=== PATIENT | male | born 1985 | race Hispanic/Latino ===

== ENCOUNTER 2020-06-03 11:04 | Emergency (ER) | payer SELFPAY ==
--- OUTSIDE RECORDS SUMMARY | 2020-06-03 11:06 | XMS REPORT | Continuity of Care Document ---
:1985 Author Organization [facility] t Address [address] [place] [address] Care Team Providers Name Role Phone Brunilda TATE, T Attending Clinician Unavailable Radha ORTA, G Attending Clinician Juan Carlos MEEK Attending Clinician Doctor Unassigned, Name Attending Clinician Unavailable Problems This patient has no known problems. Allergies, Adverse Reactions, Alerts This patient has no known allergies or adverse reactions. Medications This patient has no known medications. Procedures This patient has no known procedures. Encounters Start End Encounter Admission Attending Care Care Encounter Source Date/Time Date/Time Type Type Clinicians Facility Department ID 2020-06-03 2020-06-03 Letter ISHMAEL Worley [id number] 00:00:00 00:00:00 (Out) Rand[id number] [facility] [id number] 2020-06-02 2020-06-02 Emergency [facility] [id number] 16:38:00 19:54:00 Melba West [id number] [place] [id number] [place] [id number] 2020-06-01 2020-06-01 [facility] ([place], [place]) [id number] 17:12:16 23:59:00 Encounter Cedric West [id number] [place] [id number] [place] [id number] 2020-06-01 2020-06-01 Urgent Juan Carlos, [facility] [id number] 16:29:22 17:19:23 Care [facility] [id number] [place] [id number] [facility] [id number] nal [address] 2020-06-01 2020-06-01 Letter Doctor ISHMAEL [id number] 00:00:00 00:00:00 (Out) Unassigned, MARYLU [id number] [place] [facility] [id number] 2020-06-01 2020-06-01 Letter Doctor ISHMAEL [id number] 00:00:00 00:00:00 (Out) Unassigned, MARYLU [id number] [place] [facility] [id number] 2019-05-30 2019-05-30 Emergency [facility] [id number] 21:38:38 21:40:00 [place] [id number] [place] [id number] [place] [id number] Results This patient has no known results.
[2020-06-03 14:21] LABS: Absolute Lymphocytes (CBC) 0.7 K/uL (0.7-4.9); Basophils % 0.2 % (0-1.3); Hematocrit 47.1 % (39.6-49.0); Lymphocytes % 7.3 % (15.3-44.8); MPV 8.6 fL (7.6-11.3)
[2020-06-03 14:24] LABS: Protime INR 1.32
--- NOTE | 2020-06-03 14:26 | RAD REPORT ---
EXAM DESCRIPTION: RAD - Chest Single View - 06/03/2020 2:14 pm CLINICAL HISTORY: DYSPNEA Chest pain. COMPARISON: No comparisons FINDINGS: Portable technique limits examination quality. Moderate bilateral pulmonary opacities are present probably representing bilateral infection/bronchit is. The heart is normal in size. No displaced fractures.
[2020-06-03 15:03] LABS: SARS-COV-2 RT PCR NEGATIVE (NEGATIVE)
[2020-06-03 15:22] LABS: ALT/SGPT 79 U/L (12-78); AST/SGOT 69 U/L (15-37); Albumin 3.4 g/dL (3.4-5.0); Alkaline Phosphatase 70 U/L (45-117); BUN Blood Urea Nitrogen 15 mg/dL (7-18); Bicarbonate 25 mmol/L (21-32); Bilirubin Direct 0.2 mg/dL (0-0.2); Bilirubin Total 0.5 mg/dL (0.2-1.0); Glucose Level 90 mg/dL (74-106); Lipase 358 U/L (73-393); Potassium 3.7 mmol/L (3.5-5.1); Protein, Total 8.3 g/dL (6.4-8.2); Sodium Level 134 mmol/L (136-145); Troponin (Emerg Dept Use Only) < 0.02 ng/mL (0.0-0.045)
--- NOTE | 2020-06-03 15:49 | EDPHYS ---
Physician Documentation [facility] Name: Watson Mata Age: 35 yrs Sex: Male : 1985 Arrival Date: 06/03/2020 Time: 11:06 Bed 17 Private MD: ED Physician Timoteo Hawthorne HPI: 06/03 14:20 This 35 yrs old Male presents to ER via Ambulatory with complaints of kb Shortness Of Breath. 14:20 The patient or guardian reports cough, that is intermittent, described as mild, kb difficulty breathing, flu symptoms, low-grade fever, myalgias. Onset: The symptoms/episode began/occurred 9 day(s) ago. Severity of symptoms: At their worst the symptoms were moderate, in the emergency department the symptoms are unchanged. Modifying factors: The symptoms are alleviated by nothing, the symptoms are aggravated by nothing. Associated signs and symptoms: Pertinent positives: diarrhea, fever, nausea, vomiting. The patient has not experienced similar symptoms in the past. The patient has been recently seen by a physician: the patient's primary care provider, the ER physician, at a clinic, out of Town, with similar presenting complaints. Pt reports he started having cough, fever, chills, n/v/d, fatigue, malaise, and shortness of breath 9 days ago. and son are both positive for covid. Pt has been seen by PCP and another ER. Had x-ray done that showed covid pneumonia, but had negative covid test. Pt has been taking zithromax (on day 2) and tesselon perles. States oxygen has been staying between 93 and 95%. Pt states he knows there is nothing to be done, but his family insisted he come here because they think we will give him a different treatment.. Historical: - Allergies: 12:15 No Known Allergies; ca1 - PMHx: 12:15 None; ca1 - PSHx: 12:15 None; ca1 - Immunization history:: Flu vaccine is not up to date. - Social history:: Smoking status: Patient denies any tobacco usage or history of. ROS: 14:19 Cardiovascular: Negative for chest pain, palpitations, and edema, Back: Negative for kb injury and pain, MS/Extremity: Negative for injury and deformity, Skin: Negative for injury, rash, and discoloration. 14:19 Constitutional: Positive for body aches, chills, fatigue, fever, malaise. 14:19 Respiratory: Positive for cough, shortness of breath. 14:19 Abdomen/GI: Positive for nausea, vomiting, and diarrhea. 14:19 Neuro: Positive for headache. Exam: 14:19 Constitutional: This is a well developed, well nourished patient who is awake, alert, kb and in no acute distress. Head/Face: Normocephalic, atraumatic. Cardiovascular: Regular rate and rhythm with a normal S1 and S2. No gallops, murmurs, or rubs. No pulse deficits. Respiratory: Respirations even and unlabored. No increased work of breathing, no retractions or nasal flaring. Abdomen/GI: Soft, non-tender. No distention Skin: Warm, dry with normal turgor. Normal color. MS/ Extremity: Pulses equal, no cyanosis. Neurovascular intact. Full, normal range of motion. Neuro: Awake and alert, GCS 15, oriented to person, place, time, and situation. Moves all extremities. Normal gait. Vital Signs: 11:10 Pulse 97; Resp 22 S; Pulse Ox 96% on R/A; ca1 12:15 BP 112 / 98; Pulse 93; Resp 16 S; Temp 97.9(TE); Pulse Ox 97% on R/A; Weight 108.86 kg ca1 (R); Height 5 ft. 11 in. (180.34 cm) (R); Pain 3/10; 14:19 BP 130 / 84; Pulse 90; Resp 22 S; Pulse Ox 96% on R/A; iw 12:15 Body Mass Index 33.47 (108.86 kg, 180.34 cm) ca1 MDM: 13:06 Patient medically screened. kb 14:19 Data reviewed: vital signs, nurses notes. Data interpreted: Pulse oximetry: on room air kb is 97 %. Interpretation: normal. 15:46 Counseling: I had a detailed discussion with the patient and/or guardian regarding: the kb historical points, exam findings, and any diagnostic results supporting the discharge/admit diagnosis, lab results, radiology results, the need for outpatient follow up, a family practitioner, to return to the emergency department if symptoms worsen or persist or if there are any questions or concerns that arise at home. ED course: Pt educated to return for worsening symptoms, difficulty breathing, low oxygen saturation. Verbal understanding received. Pt educated that there is no cure for this virus. Pt is already on Zithromax. No indication for steroids at this time, no hypoxia, no resp distress. Discussed ivermectin with pt and he would like to try it. . 06/03 13:27 Order name: Blood Culture Adult (2) kb 06/03 13:27 Order name: BMP kb 06/03 13:27 Order name: C-Reactive Protein kb 06/03 13:27 Order name: CBC with Diff kb 06/03 13:27 Order name: Ferritin kb 06/03 13:27 Order name: Lactate kb 06/03 13:27 Order name: LFT's kb 06/03 13:27 Order name: Lipase; Complete Time: 15:41 kb 06/03 13:27 Order name: Procalcitonin; Complete Time: 14:57 kb 06/03 13:27 Order name: PT-INR; Complete Time: 14:31 kb 06/03 13:27 Order name: Ptt, Activated; Complete Time: 14:31 kb 06/03 13:27 Order name: Troponin (emerg Dept Use Only); Complete Time: 15:41 kb 06/03 13:27 Order name: CXR XRAY; Complete Time: 14:31 kb 06/03 13:27 Order name: EKG; Complete Time: 13:28 kb 06/03 13:27 Order name: Cardiac monitoring; Complete Time: 14:32 kb 06/03 13:27 Order name: Droplet/Contact Precautions; Complete Time: 14:04 kb 06/03 13:27 Order name: EKG - Nurse/Tech; Complete Time: 14:32 kb 06/03 13:27 Order name: IV Start; Complete Time: 14:04 kb 06/03 13:27 Order name: Labs collected and sent; Complete Time: 14:04 kb 06/03 13:28 Order name: Blood Culture EDMS 06/03 13:28 Order name: Basic Metabolic Panel; Complete Time: 15:41 EDMS 06/03 13:28 Order name: C-Reactive Protein; Complete Time: 15:41 EDMS 06/03 13:28 Order name: CBC with Automated Diff; Complete Time: 14:35 EDMS 06/03 13:28 Order name: Ferritin; Complete Time: 15:41 EDMS 06/03 13:28 Order name: Lactate; Complete Time: 15:41 [facility] 06/03 13:28 Order name: Liver (Hepatic) Function; Complete Time: 15:41 [facility] 06/03 15:03 Order name: COVID-19/FLU A+B; Complete Time: 15:05 [facility] 06/03 13:27 Order name: O2 Per Protocol; Complete Time: 14:04 kb 06/03 13:27 Order name: O2 Sat Monitoring; Complete Time: 14:05 kb Administered Medications: 15:48 Drug: Tylenol 1000 mg Route: PO; jd3 Disposition: 18:47 Co-signature as Attending Physician, Timoteo Hawthorne MD I agree with the assessment and kdr plan of care. Disposition: 06/03/20 15:48 Discharged to Home. Impression: Viral pneumonia, unspecified, Coronavirus infection, unspecified. - Condition is Stable. - Discharge Instructions: Viral Respiratory Infection, Keif-Ey-Sbdc, COVID-19. - Prescriptions for ivermectin 3 mg Oral tablet - take 6 tablet by ORAL route Day 1 Take 6 tabs on day 1 (today) and 6 tabs on day 3 (06/05/20); 12 tablet. - Medication Reconciliation Form, Thank You Letter, Antibiotic Education, Prescription Opioid Use form. - Follow up: Emergency Department; When: As needed; Reason: Worsening of condition. Follow up: Private Physician; When: 2 - 3 days; Reason: Recheck today's complaints, Continuance of care, Re-evaluation by your physician. Signatures: Dispatcher [employer] [facility] Doretha Alfaro, CONTACT LENS CUTTER-C CONTACT LENS CUTTER-Ckb Timoteo Hawthorne MD MD kdr Nona Reed, Rell Lynn RN, RN RN jd3 Nora, Mendy RN RN ca1 Corrections: (The following items were deleted from the chart) 14:21 13:28 CORONAVIRUS+MR.LAB.BRZ ordered. [facility] EDKS 14:24 13:28 Influenza Screen (A \T\ B)+BA.LAB.BRZ ordered. [facility] 14:42 14:41 Counseling: I had a detailed discussion with the patient and/or guardian regarding: the historical points, exam findings, and any diagnostic results supporting the discharge/admit diagnosis, lab results, radiology results, the need for outpatient follow up, a family practitioner, to return to the emergency department if symptoms worsen or persist or if there are any questions or concerns that arise at home, di 14:42 14:41 ED course: Pt prefers not to do blood work. States he will follow up with Dr di Vasques, he just wanted to make sure he didn't have COVID. States he has not been diagnosed with COPD in the past, but he has been a smoker for a long time. . di 16:06 15:48 06/03/2020 15:48 Discharged to Home. Impression: Viral pneumonia, unspecified; iw Coronavirus infection, unspecified. Condition is Stable. Forms are Medication Reconciliation Form, Thank You Letter, Antibiotic Education, Prescription Opioid Use. Follow up: Emergency Department; When: As needed; Reason: Worsening of condition. Follow up: Private Physician; When: 2 - 3 days; Reason: Recheck today's complaints, Continuance of care, Re-evaluation by your physician. di
--- NOTE | 2020-06-03 15:49 | ER ---
Nurse's Notes [facility] Name: Watson Mata Age: 35 yrs Sex: Male : 1985 Arrival Date: 06/03/2020 Time: 11:06 Bed 17 Private MD: Diagnosis: Viral pneumonia, unspecified;Coronavirus infection, unspecified Presentation: 06/03 12:11 Chief complaint: Patient states: my and my 8th month old had Covid 2 weeks ago. My ca1 symptoms started 05/24/2020. S/S are cough, fatigue, N/V/D, fever. SOB x 2 days. Tested negative for Covid yesterday at [facility], Chest Xray shows double pneumonia on top of Covid. Coronavirus screen: cough unrelated to allergies, diarrhea, fatigue, fever, headache, nausea, shortness of breath, vomiting. Client presents with at least one sign or symptom that may indicate coronavirus-19. Standard/surgical mask placed on the client. Provider contacted for isolation considerations. The client reports previous COVID testing was negative. Date of collection: June 02, 2020. Ebola Screen: Patient negative for fever greater than or equal to 101.5 degrees Fahrenheit, and additional compatible Ebola Virus Disease symptoms Patient denies exposure to infectious person. Patient denies travel to an Ebola-affected area in the 21 days before illness onset. No symptoms or risks identified at this time. Initial Sepsis Screen: Does the patient meet any 2 criteria? No. Patient's initial sepsis screen is negative. Does the patient have a suspected source of infection? No. Patient's initial sepsis screen is negative. Risk Assessment: Do you want to hurt yourself or someone else? Patient reports no desire to harm self or others. Onset of symptoms was May 24, 2020. 12:11 Method Of Arrival: Ambulatory ca1 12:11 Acuity: DARREN 3 ca1 Historical: - Allergies: 12:15 No Known Allergies; ca1 - PMHx: 12:15 None; ca1 - PSHx: 12:15 None; ca1 - Immunization history:: Flu vaccine is not up to date. - Social history:: Smoking status: Patient denies any tobacco usage or history of. Screenin:03 Abuse screen: Denies threats or abuse. Denies injuries from another. Nutritional iw screening: No deficits noted. Tuberculosis screening: No symptoms or risk factors identified. Fall Risk IV access (20 points). Assessment: 15:51 Reassessment: Patient appears in no apparent distress at this time. Patient and/or iw family updated on plan of care and expected duration. Pain level reassessed. Patient is alert, oriented x 3, equal unlabored respirations, skin warm/dry/pink. Vital Signs: 11:10 Pulse 97; Resp 22 S; Pulse Ox 96% on R/A; ca1 12:15 BP 112 / 98; Pulse 93; Resp 16 S; Temp 97.9(TE); Pulse Ox 97% on R/A; Weight 108.86 kg ca1 (R); Height 5 ft. 11 in. (180.34 cm) (R); Pain 3/10; 14:19 BP 130 / 84; Pulse 90; Resp 22 S; Pulse Ox 96% on R/A; iw 12:15 Body Mass Index 33.47 (108.86 kg, 180.34 cm) ca1 ED Course: 11:06 Patient arrived in ED. am2 12:15 Triage completed. ca1 12:15 Arm band placed on right wrist. ca1 13:05 Doretha Alfaro FNP-C is [facility]. kb 13:05 Timoteo Hawthorne MD is Attending Physician. kb 13:34 Nona Reed, RN is Primary Nurse. iw 14:03 Inserted saline lock: 20 gauge in left antecubital area, using aseptic technique. Blood iw collected. 14:03 Initial lab(s) drawn, by me, sent to lab. First set of blood cultures drawn. iw 14:15 CXR XRAY In Process Unspecified. EDMS 16:06 No provider procedures requiring assistance completed. IV discontinued, intact, iw bleeding controlled, No redness/swelling at site. Pressure dressing applied. Administered Medications: 15:48 Drug: Tylenol 1000 mg Route: PO; jd3 Outcome: 15:48 Discharge ordered by . kb 16:06 Discharged to home ambulatory, with family. iw 16:06 Condition: good 16:06 Discharge instructions given to patient, Instructed on discharge instructions, follow up and referral plans. medication usage, Demonstrated understanding of instructions, follow-up care, medications, Prescriptions given X 1. 16:06 Patient left the ED. iw Signatures: Dispatcher [employer] EDMS Doretha Alfaro FNP-C FNP-Ckb Williams Nona, RN RN Fabian Aly em1 Gila Mandel am2 Rell Wilcox, RN RN jd3 Mendy Melendez RN RN ca1 Corrections: (The following items were deleted from the chart) 14: 14:21 CORONAVIRUS+MR.LAB.BRZ drawn and sent. em1 EDMS 14:24 14:21 Influenza Screen (A \T\ B)+BA.LAB.BRZ drawn and sent. em1 EDMS
[2020-06-03] MEDS ORDERED: ACETAMINOPHEN 500 MG TAB ONE (16:04)
[2020-06-03 16:12] VITALS: TEMP 97.9
[2020-06-03 16:13] VITALS: BP 130/84; O2SAT 96
== END 2020-06-03 16:06 | disposition home or self-care (01) ==
LOC: ER 11:04
DX: U07.1 COVID-19 (principal); J12.9 Viral pneumonia, unspecified
CPT/HCPCS: 0240U; 36415; 71045; 80048; 80076; 82728; 83605; 83690; 84145; 84484; 85025; 85610; 85730; 86140; 87040; 93005; 99284

== ENCOUNTER 2020-06-05 04:37 | Emergency (ER) | payer SELFPAY ==
--- OUTSIDE RECORDS SUMMARY | 2020-06-05 04:39 | XMS REPORT | Continuity of Care Document ---
:1985 Author Organization [facility] t Address [address] [place] [address] Care Team Providers Name Role Phone Brunilda TATE, T Attending Clinician Unavailable Radha GUIDE WINDER, G Attending Clinician Juan Carlos WILLISP Attending Clinician Doctor Unassigned, Name Attending Clinician [...] ID 2020-06-03 2020-06-03 Letter ISHMAEL Worley [id number] 00:00:00 00:00:00 (Out) Randi VALERO [id number] [place] [id number] 2020-06-02 2020-06-[address] [facility] [id number] 16:38:00 19:54:00 Melba West [id number] [place] [id number] [place] [id number] 2020-06-01 2020-06-01 [facility] [id number] 17:12:16 23:59:00 Encounter Cedric West [id number] [place] [id number] [place] [id number] 2020-06-01 2020-06-01 Urgent Juan Carlos, [facility] [id number] 16:29:22 17:19:23 Care [facility] [id number] [place] [id number] [facility] [id number] nal [address] 2020-06-01 2020-06-01 Letter Doctor ISHMAEL [id number] 00:00:00 00:00:00 (Out) Unassigned, MARYLU [id number] [place] [facility] [id number] 2020-06-01 2020-06-01 Letter Doctor ISHMAEL [id number] 00:00:00 00:00:00 (Out) Unassigned, MARYLU [id number] [place] [facility] [id number] 2019-05-30 2019-05-30 Emergency [facility] [id number] 21:38:38 21:40:00 [place] [id number] [place] [id number] [place] [id number] [id number] Results This patient has no known results.
[2020-06-05] MEDS ORDERED: ACETAMINOPHEN 500 MG TAB ONE (05:29)
[2020-06-05 05:50] LABS: Absolute Lymphocytes (CBC) 0.5 K/uL (0.7-4.9); Basophils % 0.3 % (0-1.3); Hematocrit 45.2 % (39.6-49.0); Lymphocytes % 12.3 % (15.3-44.8); MPV 8.5 fL (7.6-11.3)
[2020-06-05 05:52] LABS: Protime INR 1.32
[2020-06-05 06:07] LABS: ALT/SGPT 169 U/L (12-78); AST/SGOT 152 U/L (15-37); Albumin 2.8 g/dL (3.4-5.0); Alkaline Phosphatase 87 U/L (45-117); BUN Blood Urea Nitrogen 13 mg/dL (7-18); Bicarbonate 24 mmol/L (21-32); Bilirubin Direct 0.3 mg/dL (0-0.2); Bilirubin Total 0.6 mg/dL (0.2-1.0); Glucose Level 99 mg/dL (74-106); NT PRO-BNP 70 pg/mL (<125); Potassium 3.6 mmol/L (3.5-5.1); Protein, Total 7.2 g/dL (6.4-8.2); Sodium Level 135 mmol/L (136-145); Troponin (Emerg Dept Use Only) < 0.02 ng/mL (0.0-0.045)
[2020-06-05] MEDS ORDERED: NA CHLORIDE 0.9% 250 ML ONE (06:43)
[2020-06-05] MEDS ORDERED: CEFTRIAXONE/SWI 1gm 1 GM/10 ML SYR ONE (06:43)
[2020-06-05] MEDS ORDERED: AZITHROMYCIN 500 MG INJ IVPB ONE (06:43)
--- NOTE | 2020-06-05 07:32 | RAD REPORT ---
EXAM DESCRIPTION: CT - Chest For Pe Angio - 06/05/2020 6:49 am CLINICAL HISTORY: SOBCOVID symptoms with negative COVID test COMPARISON: Chest Single View dated 06/05/2020 TECHNIQUE: Dynamically enhanced 3 mm thick images of the chest were obtained during administration o f approximately 150mL Isovue 370 IV contrast. Coronal and oblique MIP reconstruction images were gene rated and reviewed. Exam utilizes a protocol to evaluate the pulmonary arterial tree. All CT scans are performed using dose optimization technique as appropriate and may include automated exposure control or mA/KV adjustment according to patient size. FINDINGS: No pulmonary emboli are identified. The aorta as imaged shows no acute or suspicious finding. No pericardial thickening or effusion. Airspace opacification is present primarily in a peripheral distribution. This is present throughout all lobes more prominent in each lung base. This is a well described pattern in COVID-19 pneumonia. I nfluenza pneumonia, organizing pneumonia, drug toxicity and connective tissue disorders can also have this presentation. No pleural effusion or pleural thickening. No mediastinal or hilar suspicious masses. No chest wall masses or abnormal axillary lymphadenopathy. IMPRESSION: No pulmonary emboli identified. Extensive bilateral airspace opacification.Although the patient's testing was apparently negative, th e lung parenchymal pattern and current clinical environment both strongly support moderate severity C OVID-19 pneumonia is the most likely etiology for the lung parenchymal disease.
--- NOTE | 2020-06-05 08:08 | ER ---
Nurse's Notes [facility] Name: Watson Mata Age: 35 yrs Sex: Male : 1985 Arrival Date: 06/05/2020 Time: 04:38 Bed 7 Private MD: Diagnosis: Coronavirus infection, unspecified-pneumonia Presentation: 06/05 04:39 Ebola Screen: No symptoms or risks identified at this time. rr5 05:03 Chief complaint: EMS states: Reports pt was complaining of SOB. EMS reported RA sats in ea the 80s, pt walked to the stretcher and was winded. Reported he was diagnosed with covid on the . Pt reports his swabs were negative but his symptoms correlated. Coronavirus screen: At this time, the client does not indicate any symptoms associated with coronavirus-19. Initial Sepsis Screen: Does the patient meet any 2 criteria? No. Patient's initial sepsis screen is negative. Does the patient have a suspected source of infection? No. Patient's initial sepsis screen is negative. Risk Assessment: Do you want to hurt yourself or someone else? Patient reports no desire to harm self or others. Onset of symptoms was June 05, 2020. 05:03 Method Of Arrival: EMS: [facility] ea 05:03 Acuity: DARREN 3 ea Triage Assessment: 05:09 General: Appears uncomfortable, Behavior is appropriate for age. Pain: Denies pain. ea Neuro: Level of Consciousness is awake, alert, obeys commands, Oriented to person, place, time. Respiratory: Airway is patent Respiratory effort is even, unlabored, Respiratory pattern is regular, symmetrical. Derm: Skin is pink, warm \T\ dry. Historical: - Allergies: 05:09 sulfamethoxazole-trimethoprim; ea - Home Meds: 05:09 None [Active]; ea - PMHx: 05:09 None; ea - PSHx: 05:09 None; ea - Immunization history:: Adult Immunizations up to date. - Social history:: Smoking status: Patient denies any tobacco usage or history of. Screenin:39 Abuse screen: Denies threats or abuse. Nutritional screening: No deficits noted. rr5 Tuberculosis screening: No symptoms or risk factors identified. Fall Risk None identified. Assessment: 04:40 General: Appears in no apparent distress. uncomfortable, Behavior is calm, cooperative, rr5 appropriate for age. 04:40 Pain: Complains of pain in chest. Neuro: Level of Consciousness is awake, alert, obeys rr5 commands, Oriented to person, place, time. Cardiovascular: Reports chest pain, Capillary refill < 3 seconds Patient's skin is warm and dry. Respiratory: Reports shortness of breath Airway is patent Respiratory effort is even, unlabored, Respiratory pattern is regular, symmetrical. GI: No signs and/or symptoms were reported involving the gastrointestinal system. : No signs and/or symptoms were reported regarding the genitourinary system. EENT: No signs and/or symptoms were reported regarding the EENT system. Derm: Skin is intact, is healthy with good turgor, Skin temperature is warm. Musculoskeletal: Capillary refill < 3 seconds. 05:46 Reassessment: Patient appears in no apparent distress at this time. Patient is alert, rr5 oriented x 3, equal unlabored respirations, skin warm/dry/pink. awaiting for results. 06:53 Reassessment: Patient appears in no apparent distress at this time. Patient is alert, rr5 oriented x 3, equal unlabored respirations, skin warm/dry/pink. back from CTscan. 07:00 Reassessment: RECD REPORT FROM JACKIE TATE. 35YO HM P/W SOB, COV+. RAD RESULTS PENDING FOR bp CT PE. 07:19 Reassessment: PT AMBULATED TO AND FROM RESTROOM ON ROOM AIR, SAT 91% WITH EXERTION. bp 08:29 Reassessment: Patient appears in no apparent distress at this time. Patient is alert, jd3 oriented x 3, equal unlabored respirations, skin warm/dry/pink. Patient states symptoms have improved. 09:33 Reassessment: REPORT TO CHARISSE TATE FOR [facility]. TRANSPORT PENDING. bp 10:03 Reassessment: EMS AT B/S FOR TRANSPORT. bp Vital Signs: 05:03 BP 113 / 76; Pulse 83; Resp 23; Temp 100.2; Pulse Ox 100% 2 lpm ; Weight 108.86 kg; ea Height 5 ft. 11 in. (180.34 cm); 05:46 BP 113 / 76; Pulse 79; Resp 20; Pulse Ox 98% on 2 lpm NC; rr5 06:50 BP 123 / 65; Pulse 69; Resp 21; Pulse Ox 98% on 2 lpm NC; rr5 07:15 BP 121 / 106; Pulse 64; Resp 29; Pulse Ox 97% on 2 lpm NC; bp 08:29 BP 114 / 67; Pulse 64; Resp 23 S; Pulse Ox 94% on R/A; jd3 09:33 BP 116 / 61; Pulse 60; Resp 21; Pulse Ox 94% on R/A; bp 05:03 Body Mass Index 33.47 (108.86 kg, 180.34 cm) ea ED Course: 04:38 Patient arrived in ED. rr5 04:39 Stephen Velásquez MD is Attending Physician. 7 04:39 Patient has correct armband on for positive identification. Bed in low position. Call rr5 light in reach. Side rails up X2. 05:02 Arm band placed on right wrist. Patient placed in an exam room, on a stretcher, on ea pulse oximetry. 05:05 En Andres RN is Primary Nurse. rr5 05:08 Triage completed. ea 05:30 Inserted saline lock: 20 gauge in right antecubital area, using aseptic technique. rr5 Blood collected. 05:30 EKG done, by ED staff, reviewed by Stephen Velásquez MD. First set of blood cultures drawn rr5 by wa. 05:32 XRAY Chest (1 view) In Process Unspecified. EDMS 05:47 Second set of blood cultures drawn by me. rr5 06:49 CT Chest For PE Angio In Process Unspecified. EDMS 07:51 initiated a transfer with Zaheer from the [facility]. eb 08:16 Attending Physician role handed off by Stephen Velásquez MD ma2 08:16 Jennifer Landry MD is Attending Physician. ma2 08:16 COVID swab sent to lab. em1 08:24 faxed over a face sheet to Zaheer to register the patient at [facility]. eb 09:09 administrative approval given by Zaheer Alexandra/ patient has been accepted to [facility]35/ Dr. Jovanny Reed has accepted the patient without conference with Dr. Landry. Report to be called to [phone]. 09:33 No provider procedures requiring assistance completed. Patient transferred, IV remains bp in place. Administered Medications: 05:30 Drug: Tylenol 1000 mg Route: PO; rr5 06:30 Follow up: Response: No adverse reaction rr5 06:36 Drug: Rocephin - (cefTRIAXone) 1 grams Route: IVPB; Infused Over: 30 mins; Site: right ea antecubital; 10:04 Follow up: IV Status: Completed infusion; IV Intake: 100ml bp 07:25 Drug: Zithromax (azithromycin) 500 mg Route: IVPB; Infused Over: 1 hrs; Site: right jd3 antecubital; 10:04 Follow up: IV Status: Completed infusion; IV Intake: 100ml bp 08:00 Drug: Decadron - Dexamethasone 10 mg Route: IVP; Site: right antecubital; bp 10:04 Follow up: Response: No adverse reaction bp Intake: 10:04 IV: 100ml; Total: 100ml. bp 10:04 IV: 100ml; Total: 200ml. bp Outcome: 08:07 ER care complete, transfer ordered by MD. worrell 09:33 Transferred by ground EMS to [facility], Transfer form completed. bp 09:33 Condition: stable 09:33 Instructed on the need for transfer. 10:05 Patient left the ED. bp Signatures: Dispatcher [employer] Fabian [place] em1 Jackie Osborn RN RN ea Davies, Jonathon, RN RN jd3 Peltier, Brian, RN RN bp Alzahri, Mohammad, MD MD ma2 Jsesika Rodriguez Raymond, RN RN rr5 Stephen Velásquez MD MD mh7
--- NOTE | 2020-06-05 08:09 | EDPHYS ---
Physician Documentation [facility] Name: Watson Mata Age: 35 yrs Sex: Male : 1985 Arrival Date: 06/05/2020 Time: 04:38 Bed 7 Private MD: ED Physician Jennifer Landry HPI: 06/05 05:48 This 35 yrs old Male presents to ER via EMS with complaints of Shortness Of mh7 Breath. 05:48 The patient has shortness of breath at rest, with light activity. Onset: The mh7 symptoms/episode began/occurred yesterday. Duration: The symptoms are intermittent, with no pattern. The patient's shortness of breath is aggravated by coughing, light activity, is alleviated by nothing. 05:50 Associated signs and symptoms: Pertinent positives: productive cough, fever, Pertinent mh7 negatives: chest pain, non-productive cough, diaphoresis, dizziness, hemoptysis, loss of consciousness, nausea, numbness in extremities, visual changes, vomiting. Severity of symptoms: At their worst the symptoms were moderate last night, in the emergency department the symptoms have improved moderately. The patient has been recently seen at the [facility] Emergency Department, this week. States that he was diagnosed with COVID and started on medication 3 days ago. He was seen here 2 days ago for same complaint. States that he is now feeling SOB. EMS report that his oxygen saturation was 80's% on room air.. Historical: - Allergies: 05:09 sulfamethoxazole-trimethoprim; ea - Home Meds: 05:09 None [Active]; ea - PMHx: 05:09 None; ea - PSHx: 05:09 None; ea - Immunization history:: Adult Immunizations up to date. - Social history:: Smoking status: Patient denies any tobacco usage or history of. ROS: 05:50 Eyes: Negative for injury, pain, redness, and discharge, ENT: Negative for injury, mh7 pain, and discharge, Neck: Negative for injury, pain, and swelling, Cardiovascular: Negative for chest pain, palpitations, and edema, Abdomen/GI: Negative for abdominal pain, nausea, vomiting, diarrhea, and constipation, Back: Negative for injury and pain, : Negative for injury, bleeding, discharge, and swelling, MS/Extremity: Negative for injury and deformity, Skin: Negative for injury, rash, and discoloration, Neuro: Negative for headache, weakness, numbness, tingling, and seizure, Psych: Negative for depression, anxiety, suicide ideation, homicidal ideation, and hallucinations, Allergy/Immunology: Negative for hives, rash, and allergies, Endocrine: Negative for neck swelling, polydipsia, polyuria, polyphagia, and marked weight changes, Hematologic/Lymphatic: Negative for swollen nodes, abnormal bleeding, and unusual bruising. Exam: 05:50 Constitutional: This is a well developed, well nourished patient who is awake, alert, mh7 and in no acute distress. Head/Face: Normocephalic, atraumatic. Eyes: Pupils equal round and reactive to light, extra-ocular motions intact. Lids and lashes normal. Conjunctiva and sclera are non-icteric and not injected. Cornea within normal limits. Periorbital areas with no swelling, redness, or edema. Neck: Trachea midline, no thyromegaly or masses palpated, and no cervical lymphadenopathy. Supple, full range of motion without nuchal rigidity, or vertebral point tenderness. No Meningismus. Chest/axilla: Normal chest wall appearance and motion. Nontender with no deformity. No lesions are appreciated. Cardiovascular: Regular rate and rhythm with a normal S1 and S2. No gallops, murmurs, or rubs. Normal PMI, no JVD. No pulse deficits. 05:50 Abdomen/GI: Soft, non-tender, with normal bowel sounds. No distension or tympany. No guarding or rebound. No evidence of tenderness throughout. Back: No spinal tenderness. No costovertebral tenderness. Full range of motion. Skin: Warm, dry with normal turgor. Normal color with no rashes, no lesions, and no evidence of cellulitis. MS/ Extremity: Pulses equal, no cyanosis. Neurovascular intact. Full, normal range of motion. Neuro: Awake and alert, GCS 15, oriented to person, place, time, and situation. Cranial nerves II-XII grossly intact. Motor strength 5/5 in all extremities. Sensory grossly intact. Cerebellar exam normal. Normal gait. Psych: Awake, alert, with orientation to person, place and time. Behavior, mood, and affect are within normal limits. 05:50 Respiratory: the patient does not display signs of respiratory distress, Respirations: normal, Breath sounds: rhonchi, that are mild, are scattered, Respiratory rate: 20 Vital Signs: 05:03 BP 113 / 76; Pulse 83; Resp 23; Temp 100.2; Pulse Ox 100% 2 lpm ; Weight 108.86 kg; ea Height 5 ft. 11 in. (180.34 cm); 05:46 BP 113 / 76; Pulse 79; Resp 20; Pulse Ox 98% on 2 lpm NC; rr5 06:50 BP 123 / 65; Pulse 69; Resp 21; Pulse Ox 98% on 2 lpm NC; rr5 07:15 BP 121 / 106; Pulse 64; Resp 29; Pulse Ox 97% on 2 lpm NC; bp 08:29 BP 114 / 67; Pulse 64; Resp 23 S; Pulse Ox 94% on R/A; jd3 09:33 BP 116 / 61; Pulse 60; Resp 21; Pulse Ox 94% on R/A; bp 05:03 Body Mass Index 33.47 (108.86 kg, 180.34 cm) ea MDM: 08:04 Differential diagnosis: Bronchitis CHF exacerbation, Chronic Obstructive Pulmonary ma2 Disease pneumonia, reactive airway disease. Data reviewed: vital signs, nurses notes, EMS record. Counseling: I had a detailed discussion with the patient and/or guardian regarding: the historical points, exam findings, and any diagnostic results supporting the discharge/admit diagnosis, the presence of at least one elevated blood pressure reading (>120/80) during this emergency department visit, the need for further work-up and treatment in the hospital. ED course: patient would like to [facility], he tested positive for covid 8 days ago at outside hospital. spo2 is 93 on RA goes down to 85 when ambulate he feels short of breath. second visit to er. ct shows bilateral viral covid pneumonia consistent with covid-19 . 08:07 Patient medically screened. ma2 06/05 05:10 Order name: Basic Metabolic Panel [facility] 06/05 05:10 Order name: CBC with Diff [facility] 06/05 05:10 Order name: LFT's [facility] 06/05 05:10 Order name: Magnesium [facility] 06/05 05:10 Order name: NT PRO-BNP [facility] 06/05 05:10 Order name: PT-INR [facility] 06/05 05:10 Order name: Troponin (emerg Dept Use Only); Complete Time: 06:11 7 06/05 05:10 Order name: Blood Culture Adult (2) [facility] 06/05 05:10 Order name: Procalcitonin; Complete Time: 07:13 7 06/05 05:10 Order name: Lactate; Complete Time: 06:11 7 06/05 05:10 Order name: Basic Metabolic Panel; Complete Time: 06:11 EDMS 06/05 05:10 Order name: CBC with Automated Diff; Complete Time: 06:11 MS 06/05 05:10 Order name: Liver (Hepatic) Function; Complete Time: 06:11 EDMS 06/05 05:10 Order name: Magnesium; Complete Time: 06:11 MS 06/05 05:10 Order name: XRAY Chest (1 view) [facility] 06/05 05:10 Order name: EKG; Complete Time: 05:11 7 06/05 05:10 Order name: Cardiac monitoring; Complete Time: 05:44 7 06/05 05:10 Order name: NT PRO-BNP; Complete Time: 06:11 MS 06/05 05:10 Order name: Protime (+INR); Complete Time: 07:13 MS 06/05 05:16 Order name: CRP la1 06/05 05:58 Order name: C-Reactive Protein; Complete Time: 06:11 MS 06/05 06:20 Order name: CT Chest For PE Angio; Complete Time: 07:36 7 06/05 07:56 Order name: COVID-19 : Document "Date of Symptom Onset" if Symptomatic. 06/05 08:58 Order name: SARS-COV-2 RT PCR [facility] 06/05 05:10 Order name: EKG - Nurse/Tech; Complete Time: 05:44 7 06/05 05:10 Order name: IV Saline Lock; Complete Time: 05:44 7 06/05 05:10 Order name: Labs collected and sent; Complete Time: 05:44 7 06/05 05:10 Order name: O2 Per Protocol; Complete Time: 05:44 7 06/05 05:10 Order name: O2 Sat Monitoring; Complete Time: 05:44 mh7 Administered Medications: 05:30 Drug: Tylenol 1000 mg Route: PO; rr5 06:30 Follow up: Response: No adverse reaction rr5 06:36 Drug: Rocephin - (cefTRIAXone) 1 grams Route: IVPB; Infused Over: 30 mins; Site: right ea antecubital; 10:04 Follow up: IV Status: Completed infusion; IV Intake: 100ml bp 07:25 Drug: Zithromax (azithromycin) 500 mg Route: IVPB; Infused Over: 1 hrs; Site: right jd3 antecubital; 10:04 Follow up: IV Status: Completed infusion; IV Intake: 100ml bp 08:00 Drug: Decadron - Dexamethasone 10 mg Route: IVP; Site: right antecubital; bp 10:04 Follow up: Response: No adverse reaction bp Disposition: 06/05/20 08:07 Transfer ordered to [facility]. Diagnosis is Coronavirus infection, unspecified - pneumonia. - Reason for transfer: Higher level of care. - Accepting physician is Dr. Jovanny Reed. - Condition is Stable. - Problem is new. - Symptoms are unchanged. Signatures: Dispatcher [employer] EDMS David Haas, INSURANCE PREMIUM AUDITOR-C INSURANCE PREMIUM AUDITOR-Cla1 Jackie Osborn RN RN ea Davies, Jonathon, RN RN jJohnathan Dowling RN RN bp Alzahri, Mohammad, MD MD ma2 Jessika Rodriguez Raymond RN RN rr5 Stephen Velásquez MD MD mh7 Corrections: (The following items were deleted from the chart) 05:57 05:17 C-Reactive Protein ordered. EDOR EDMS 08:17 07:58 CORONAVIRUS ordered. EDOR EDMS 09:37 08:07 06/05/2020 08:07 Transfer ordered to Other Acute Care Facility. Diagnosis is eb Coronavirus infection, unspecified - pneumonia. Reason for transfer: Higher level of care. Accepting physician is os. Condition is Stable. Problem is new. Symptoms are unchanged. ma2 10:05 09:37 06/05/2020 08:07 Transfer ordered to [facility]. Diagnosis is Coronavirus bp infection, unspecified - pneumonia. Reason for transfer: Higher level of care. Accepting physician is Dr. Jovanny Reed. Condition is Stable. Problem is new. Symptoms are unchanged. eb
[2020-06-05] MEDS ORDERED: dexAMETHasone 10 MG/ML VIAL ONE (08:13)
--- NOTE | 2020-06-05 08:16 | RAD REPORT ---
EXAM DESCRIPTION: Goran Single View3 5:32 am CLINICAL HISTORY: Cough COMPARISON: June 03, 2020 FINDINGS: Moderate bilateral pulmonary opacities unchanged. Heart is normal size IMPRESSION: No change in a moderate bilateral pneumonia
[2020-06-05 10:10] VITALS: TEMP 100.2
[2020-06-05 10:16] VITALS: O2SAT 94
[2020-06-05 10:17] VITALS: BP 116/61
== END 2020-06-05 10:05 | disposition short-term general hospital (02) ==
LOC: ER 04:37
DX: U07.1 COVID-19 (principal); J12.82 Pneumonia due to coronavirus disease 2019; Z88.2 Allergy status to sulfonamides
CPT/HCPCS: 36415; 71045; 71275; 80048; 80076; 83605; 83735; 83880; 84145; 84484; 85025; 85610; 86140; 87040; 93005; 96365; 96366; 96375; 99285; J0456; J0696; J1100; J7050; Q9967; U0003